=== PATIENT | female | born 1950 | race African-American/Black ===

== ENCOUNTER 2019-04-15 15:10 | Inpatient (IN) | payer OTHER ==
[~2019-04-15] VITALS: Ht 154.9 cm; Wt 73.0 kg
--- NOTE | 2019-04-15 15:20 | NUR ---
Dr Phelps at the bedside for MSE.
[2019-04-15] MEDS ORDERED: ATOR10TA PO (15:34)
[2019-04-15] MEDS ORDERED: MULT-1168 PO (15:34)
[2019-04-15] MEDS ORDERED: EQUATE EYE (15:34)
[2019-04-15] MEDS ORDERED: LISI10TA5 PO (15:34)
[2019-04-15] MEDS ORDERED: PANT40TA2 PO (15:34)
[2019-04-15 15:41] LABS: BASOPHILS % (AUTO) 0.4 % (0.0-2.0); EOSINOPHILS % (AUTO) 0.6 % (0.0-7.0); HEMATOCRIT 42.5 % (31.2-41.9); HEMOGLOBIN 14.1 g/dL (10.9-14.3); LYMPHOCYTES # (AUTO) 3.8 K/uL (20.0-40.0); MEAN CORPUSCULAR HGB CONC 33 g/dL (32.3-35.6); MEAN CORPUSCULAR VOLUME 93.5 fL (75.5-95.3); MONOCYTES # (AUTO) 0.5 K/uL (2.0-10.0); MONOCYTES % (AUTO) 6.9 % (0.0-11.0); NEUTROPHILS # (AUTO) 3.5 K/uL (1.8-8.9); NEUTROPHILS % (AUTO) 44.1 % (38.5-71.5); PLATELET COUNT (AUTO) 283 K/uL (179-408); RED BLOOD CELL COUNT(AUTO) 4.54 MIL/uL (3.63-4.92); WHITE BLOOD COUNT (AUTO) 7.8 K/uL (3.8-11.8)
[2019-04-15 15:49] LABS: CARBON DIOXIDE 28 mmol/L (21-32); CHLORIDE 105 mmol/L (98-107); GLUCOSE 118 mg/dL (74-106); POTASSIUM 3.4 mmol/L (3.5-5.1); UREA NITROGEN, BLOOD 18 mg/dL (7-18)
[2019-04-15 15:55] LABS: ALANINE AMINOTRANSFERASE 25 U/L (14-59); ALKALINE PHOSPHATASE 51 U/L (50-136); ASPARTATE AMINOTRANSFERASE 19 U/L (15-37); BILIRUBIN,DIRECT 0.1 mg/dL (0.0-0.2); BILIRUBIN,TOTAL 0.5 mg/dL (0.2-1.0); TOTAL PROTEIN, SERUM 8.3 g/dL (6.4-8.2)
[2019-04-15 15:56] LABS: ACETAMINOPHEN < 2.0 ug/mL (10-30)
[2019-04-15 15:59] LABS: ETHANOL < 3 MG/DL (0-0)
--- NOTE | 2019-04-15 16:15 | NUR ---
Pt is medically cleared by Dr Phelps.
[2019-04-15] MEDS ORDERED: LORAZEPAM 1 MG TABLET PO PRN (17:00)
[2019-04-15] MEDS ORDERED: TEMAZEPAM 7.5 MG CAPSULE PO PRN (17:00)
[2019-04-15] MEDS ORDERED: BLOOD SUGAR DIAGNOSTIC 1 EACH STRIP VI ONE (17:00)
--- NOTE | 2019-04-15 17:00 | NUR ---
Gps/Egg Setter- Admitted from ER via gurney, alert, awake, anxious, in no signs of any distress, ambulated to her chair with her steady gait. Upon face to face interaction with patient, she claimed she had some she had some arguments with her daughter Farida.she denies attacking her daughter. During interview on admission noted and observed patient talking to herself and whispering . When asked if she is hearing voices , patient denies. Able to answer question appropriately, cooperative during admission.Claimed she was having out patient Psych.therapy in the past years, she stopped taking her meds. claimed she does not need it anymore , and she does not hear voices . Routine admission care done.
--- NOTE | 2019-04-15 20:00 | NUR ---
RECEIVED PATIENT IN HER ROOM IN BED. SHE IS NOTED. AWAKE A/O X 3. ABLE TO AMBULATE WITH STEADY GAIT. SHE IS NOTED CALM AND PLEASANT UPON APPROACHED. POOR INSIGHT AND JUDGMENT IS NOTED TO THE REASON FOR HER ADMISSION TO [facility]. SHE CONTINUE STATED THAT, "I WAS JUST TRYING TO STOP MY DAUGHTER FROM DRINKING. YOU KNOW? SHE IS AND ALCOHOLIC. I WANTED TO HELP HER." PT DENIES SI/HI/AH/VH. SHE IS ABLE TO CFS. V/S STABLE AT THIS TIME. PATIENT IS REASSURED FOR HER SAFETY. WILL CONTINUE TO MONITOR.
[2019-04-15 20:23] VITALS: BP 119/80
[2019-04-15] MEDS: ACETAMINOPHEN 325 MG TABLET PO PRN (20:38)
[2019-04-15] MEDS: MAGNESIUM HYDROXIDE 30 ML LIQUID UDC PO PRN (20:38)
[2019-04-16 07:30] VITALS: BP 166/86
[2019-04-16 07:50] LABS: BILIRUBIN,TOTAL 0.5 mg/dL (0.2-1.0); CREATININE 0.9 mg/dL (0.6-1.3); POTASSIUM 3.6 mmol/L (3.5-5.1); TOTAL PROTEIN, SERUM 7.9 g/dL (6.4-8.2)
[2019-04-16] MEDS: LISINOPRIL 10 MG TABLET PO SCH (08:57)
[2019-04-16] MEDS: MULTIVITAMINS,THERAPEUTIC TABLET PO SCH (08:57)
[2019-04-16] MEDS ORDERED: Medication Not On Formulary EA (Mu-Vits-Min Th/Lycopene/Lutein (Centrum Silver Tablet) 1 PO SCH (09:00)
[2019-04-16] MEDS: PANTOPRAZOLE SODIUM 40 MG TABLET.DR PO SCH (09:08)
--- NOTE | 2019-04-16 10:44 | NUR ---
Social Work Note/Initial Discharge Plan: Patient currently resides at home with her daughter Farida [phone]) [address] [place] [address]; ([phone]). insulation worker interior surface spoke to patients daughter and stated that upon discharge she would want patient home but would want another alternative. insulation worker interior surface will work with the patient and the MD regarding appropriate discharge planning. insulation worker interior surface will form a safe and proper discharge.
--- NOTE | 2019-04-16 10:45 | NUR ---
Social Work Note/Family Contact: wafer production lead worker spoke to patients daughter Farida ([phone]) and explained patients treatment plan and discharge plan. Per patient, she would want the principal technical writer to find an alternative discharge if possible.
[2019-04-16] MEDS: ACETAMINOPHEN 325 MG TABLET PO PRN ×2 (12:42→19:47)
[2019-04-16 14:12] LABS: *BILIRUBIN,URIN NEGATIVE (NEGATIVE); *BLOOD, URINE NEGATIVE (NEGATIVE); *CLARITY,URINE CLEAR (CLEAR); *COLOR,URINE YELLOW (YELLOW); *KETONES,URINE NEGATIVE (NEGATIVE); *UROBILINOGEN,URINE 0.2 E.U./dl (NORMAL); LEUKOCYTE ESTERASE ,URINE NEGATIVE (NEGATIVE); NITRITE, URINE NEGATIVE (NEGATIVE); UGLUCOSE NEGATIVE (NEGATIVE)
[2019-04-16 14:21] LABS: *AMPHETAMINE, URINE NEGATIVE (NEGATIVE); *BARBITURATE, URINE NEGATIVE (NEGATIVE); *CANNABINOID, URINE NEGATIVE (NEGATIVE); *COCCAINE, URINE NEGATIVE (NEGATIVE); *OPIATE, URINE NEGATIVE (NEGATIVE); *PHENCYCLIDINE SCREEN,URINE NEGATIVE (NEGATIVE)
--- NOTE | 2019-04-16 14:34 | NUR ---
Social Work Note/UR Note: ornamental iron worker helper faxed Marlena from [facility] (P:[phone]) (F:[phone]) patients progress notes and [facility].
[2019-04-16 15:37] VITALS: BP 125/73
--- NOTE | 2019-04-16 17:29 | NUR ---
Gps/Tumbling And Rolling Supervisor- Had been cooperative and redirectable, pleasant to the staff, denies hearing voices, attend her group therapy
[2019-04-16] MEDS: MAGNESIUM HYDROXIDE 30 ML LIQUID UDC PO PRN (18:40)
[2019-04-16] MEDS: ATORVASTATIN 10 MG TABLET PO SCH (20:00)
[2019-04-16 20:02] VITALS: BP 178/83
--- NOTE | 2019-04-16 20:20 | NUR ---
PATIENT B/P IS 178/83 PULSE IS 64. PATIENT IN NO DISTRESS. DR RECORDING CLERK (TAURUS) WAS CONTACTED, HE STATED HE WILL BE COMING TO THE UNIT IN A LITTLE BIT. WILL CONTINUE TO MONITOR.
[2019-04-16] MEDS ORDERED: CLONIDINE HCL 0.1 MG TABLET PO PRN (22:30)
--- NOTE | 2019-04-16 23:55 | NUR ---
b/p was rechecked 124/61. patient sleeping comfortable in her room in bed. will continue to monitor.
[2019-04-17 00:17] VITALS: BP 124/61
[2019-04-17] MEDS: PANTOPRAZOLE SODIUM 40 MG TABLET.DR PO SCH (06:34)
[2019-04-17 07:30] VITALS: BP 140/76
[2019-04-17] MEDS: DIVALPROEX 250 MG TABLET.DR PO SCH ×3 (10:01→17:28)
[2019-04-17] MEDS: risperiDONE 1 MG TABLET PO SCH ×2 (10:03→20:03)
[2019-04-17] MEDS: LISINOPRIL 10 MG TABLET PO SCH (10:03)
[2019-04-17] MEDS: MULTIVITAMINS,THERAPEUTIC TABLET PO SCH (10:03)
[2019-04-17 16:44] VITALS: BP 104/65
[2019-04-17 19:46] VITALS: BP 140/67
[2019-04-17] MEDS: ATORVASTATIN 10 MG TABLET PO SCH (20:03)
--- NOTE | 2019-04-18 06:07 | NUR ---
Gps: patient remain calm and cooperative through the shift. pleasant to the staff, denies hearing voices, no aggressive behavior noted at this time. slept 9.30 hrs through the night. continue plan of care.
[2019-04-18] MEDS: PANTOPRAZOLE SODIUM 40 MG TABLET.DR PO SCH (06:26)
[2019-04-18 07:30] VITALS: BP 134/77
[2019-04-18] MEDS: MULTIVITAMINS,THERAPEUTIC TABLET PO SCH (08:22)
[2019-04-18] MEDS: risperiDONE 1 MG TABLET PO SCH ×2 (08:22→21:02)
[2019-04-18] MEDS: DIVALPROEX 250 MG TABLET.DR PO SCH ×3 (08:22→16:36)
[2019-04-18] MEDS: LISINOPRIL 10 MG TABLET PO SCH (08:22)
--- NOTE | 2019-04-18 15:34 | NUR ---
PATIENT IS CALM AND COOPERATIVE WITH STAFF IN TAKING HER MEDICATIONS AND ATTENDING TO HER NEEDS.SHE DENIES HEARING VOICES. ATTENDED GROUP THERAPY AND INTERACTED WELL WITH OTHER PATIENTS.WILL CONTINUE TO MONITOR.
[2019-04-18 15:48] VITALS: BP 116/68
[2019-04-18 20:00] VITALS: BP 143/73
[2019-04-18] MEDS: ATORVASTATIN 10 MG TABLET PO SCH (21:02)
[2019-04-19] MEDS: PANTOPRAZOLE SODIUM 40 MG TABLET.DR PO SCH (06:38)
[2019-04-19 07:57] VITALS: BP 129/74
[2019-04-19] MEDS: MULTIVITAMINS,THERAPEUTIC TABLET PO SCH (08:38)
[2019-04-19] MEDS: DIVALPROEX 250 MG TABLET.DR PO SCH ×3 (08:38→16:43)
[2019-04-19] MEDS: risperiDONE 1 MG TABLET PO SCH ×2 (08:39→20:08)
[2019-04-19] MEDS: LISINOPRIL 10 MG TABLET PO SCH (08:39)
--- NOTE | 2019-04-19 09:07 | NUR ---
Received patient in her assigned bed awake. She is calm, cooperative, and pleasant upon approach. Bed in low and locked position. Patient is alert and oriented to person, place, time, and situation. She is able to communicate her needs to staff. Patient educated about importance of adherence to treatment plan, able to verbalize understanding. Will continue to monitor.
--- NOTE | 2019-04-19 10:23 | NUR ---
Social Work Note/UR Note: coating line worker faxed Jo-Ann from [facility] ([phone]) (F:[phone]) patients progress notes and [facility].
[2019-04-19 15:45] VITALS: BP 127/86
--- NOTE | 2019-04-19 16:16 | NUR ---
Social Work Note/Coordination of Care: diversified crops i farmworker faxed [facility] progress notes and progress notes to [facility] ([phone]).diversified crops i farmworker faxed [facility] psychiatric progress notes and progress notes to [facility] ([phone]). diversified crops i farmworker faxed [facility] psychiatric progress notes and progress notes to [facility] ([phone]).
--- NOTE | 2019-04-19 16:24 | NUR ---
Social Work Note/Coordination of Care: workers compensation specialist faxed [facility] progress notes and progress notes to [facility] ([phone]) and spoke to Jaren who will review patients case.
--- NOTE | 2019-04-19 16:26 | NUR ---
Social Work Note/Coordination of Care: test worker faxed [facility] progress notes and progress notes to [facility] ([phone]) and spoke to Francisca who will review patients case.
[2019-04-19] MEDS: ACETAMINOPHEN 325 MG TABLET PO PRN (19:24)
[2019-04-19 20:00] VITALS: BP 131/86
[2019-04-19] MEDS: ATORVASTATIN 10 MG TABLET PO SCH (20:08)
[2019-04-20] MEDS: PANTOPRAZOLE SODIUM 40 MG TABLET.DR PO SCH (06:35)
[2019-04-20 07:30] VITALS: BP 131/77
[2019-04-20] MEDS: MULTIVITAMINS,THERAPEUTIC TABLET PO SCH (08:37)
[2019-04-20] MEDS: DIVALPROEX 250 MG TABLET.DR PO SCH ×2 (08:37→12:56)
[2019-04-20] MEDS: risperiDONE 1 MG TABLET PO SCH (08:37)
[2019-04-20 08:38] VITALS: BP 131/77
[2019-04-20] MEDS: LISINOPRIL 10 MG TABLET PO SCH (08:38)
--- NOTE | 2019-04-20 08:47 | NUR ---
Social Work Note/UR Note: plant nursery worker faxed Jo-Ann from [facility] ([phone]) (F:[phone]) patients progress notes and [facility] notes.
--- NOTE | 2019-04-20 11:48 | NUR ---
Social Work Note/Discharge: Patient will be discharged home to [address] [place] [id number]; ([phone]). Patient will be picked up via taxi at 3PM. Patients daughter Farida, ([phone]) is aware and agreeable to patients discharge. Patient appears to be alert and oriented x4. Upon discharge, patient appear to be calm, cooperative and happy to be going home. Patient denies suicidal and homicidal ideation. Patient will follow up with Dr. Curry (reports analyst) at [facility] [address] [place] [address], [address] [place] [address]; ([phone]) on April 22 at 12PM and patient will be following up with a new psychiatrist (will be assigned upon arrival) at [address] [address]; ([phone]) on April 26 at 1PM. Patient was provided with outpatient mental health resources to [facility] , and the National Suicide Prevention Lifeline . Patient presented with euthymic and congruent mood.
--- NOTE | 2019-04-20 11:50 | NUR ---
Social Work Note/Firarms Report: Risk Management Internship completed and submitted a [employer] firearms report for 5150 grave disability certification. A copy of report has been placed in patient chart.
--- NOTE | 2019-04-20 11:50 | NUR ---
Social Work Note/Family Contact: sheet metal worker contacted patients daughter Farida ([phone]) and left voicemail that patient will be discharged today via taxi and that she no longer has authorization day to stay at the hospital.
--- NOTE | 2019-04-20 12:00 | NUR ---
Social Work Note/Coordination of Care: broke worker spoke to Jayde from [facility] ([phone]) who arranged patients apt for April 26 at 1PM. Addendum: 04/20/19 at 1203 by LULA ELLINGTON broke worker also faxed [phone] patients [facility] notes and progress notes.
--- NOTE | 2019-04-20 12:00 | NUR ---
Social Work Note/Coordination of Care: grounds worker spoke to officer of the day from [facility] ([phone]) who arranged patients apt for April 22 at 12PM. Addendum: 04/20/19 at 1202 by LULA ELLINGTON grounds worker also faxed [phone] patients [facility] psychiatric notes and progress notes.
--- NOTE | 2019-04-20 12:30 | NUR ---
Social Work Note/Coordination of Care: stove bottom worker spoke to Lisbeth admin coordinator from [facility] ([phone]) who stated that patient is not accepted due to insurance. stove bottom worker spoke to Anand ([phone]) from [facility] who stated that patient is not accepted due to insurance as well.
--- NOTE | 2019-04-20 12:44 | NUR ---
Social Work Note/APS Report: steelworker filed a report for neglect/alcohol abuse against patients daughter Farida ([phone]) and (Intake ID [id number]).
--- NOTE | 2019-04-20 14:24 | NUR ---
1400 Discharged instruction given to zahra flores regarding her medictions to continue at home and medical prescription given. Patient instructed to claim her psydh presription to her pharmacy that was called inn by the charge nurse and filled the medical prescription. All belonging and valuables returned and signed. 1415 Patient discharged home via taxi, patient denies SI/HI. No delusion. No a/v hsallucination noted.
[2019-04-20 16:00] VITALS: BP 112/71
--- NOTE | 2019-04-22 09:47 | NUR ---
Social Work Note/UR Note: healthcare social worker has been speaking to Jo-Ann Vides Sandra, Justine from [facility] ([phone]). Patients case has been continually passed on from one worker to another.
== END 2019-04-20 15:00 | disposition home or self-care (01) | DRG 885 ==
LOC: ER 15:10 → GPS 16:30
PROVIDERS: ADMIT Psychiatry & Neurology Psychiatry; ATTEND Student in an Organized Health Care Education/Training Program
DX: F25.9 Schizoaffective disorder, unspecified (principal); E87.6 Hypokalemia; E78.5 Hyperlipidemia, unspecified; I10 Essential (primary) hypertension; F14.11 Cocaine abuse, in remission
CPT/HCPCS: 36415; 80164; 80307; 84443; 85025; 93005; A4663; G0480; G0480-TC; J3490